=== PATIENT | female | born 2000 | race Caucasian/White ===

== ENCOUNTER 2024-02-12 07:01 | Day surgery (SDC) | payer BC ==
[2024-02-10 13:26] LABS: Hematocrit 39.3 % (34.9-44.5); Hemoglobin 13.3 g/dL (12.0-15.5); Mean Corpuscular HGB CONC 33.8 g/dL (32.0-36.0); Mean Corpuscular Hemoglobin 28.5 pg (27.0-33.0); Mean Corpuscular Volume 84.3 fL (81.6-98.3); Mean Platelet Volume 10.4 fL (7.4-10.4); Platelet Count 285 10x3/uL (150-450); RBC Distribution Width 13.1 % (11.5-14.5); Red Blood Cell (RBC) Count 4.66 10x6/uL (3.90-5.03)
[2024-02-10 13:54] LABS: BHCG - Serum Negative (NEGATIVE); Pregs Control Background? CLEAR/WHITE (CLR/WHITE); Pregs Control Bar Appear? YES (CONTROL BAR)
[2024-02-12] MEDS ORDERED: CeleCOXIB 100 MG CAP ONE (07:20)
[2024-02-12] MEDS ORDERED: Gabapentin 300 MG CAP ONE (07:20)
[2024-02-12] MEDS ORDERED: CEFAZOLIN 2 GM VIAL ONE (07:21)
[2024-02-12] MEDS ORDERED: Famotidine/PF 20 mg/2ml Vial ONE ×2 (07:22→07:25)
[2024-02-12] MEDS ORDERED: Lidocaine 2% PF 5 ML VIAL ONE (08:27)
[2024-02-12] MEDS ORDERED: Ondansetron PF 4 MG/2 ML Vial ONE ×2 (08:28→13:48)
[2024-02-12] MEDS ORDERED: SUGAMMADEX SODIUM 200 MG/2 ML VIAL ONE (08:28)
[2024-02-12] MEDS ORDERED: Rocuronium Bromide 10 MG/ML (10ML VIAL) ONE (08:28)
[2024-02-12] MEDS ORDERED: diphenhydrAMINE 50 MG/ML VIAL ONE (08:28)
[2024-02-12] MEDS ORDERED: Dexamethasone 4 mg/ml Vial ONE (08:28)
[2024-02-12] MEDS ORDERED: fentaNYL 50 mcg/mL 1 mL Vial ONE ×2 (08:39→14:30)
[2024-02-12] MEDS ORDERED: Midazolam HCl 2 mg/2 ml Vial ONE (08:41)
[2024-02-12] MEDS ORDERED: PROPOFOL 20 ML ONE (09:32)
[2024-02-12] MEDS ORDERED: Bupivacaine HCl 0.5%/Epinephrine 1:200,000/PF 30 ml Vial ONE (10:30)
[2024-02-12] MEDS ORDERED: Methylene Blue 50 MG/10 ML AMPUL ONE (10:51)
[2024-02-12] MEDS ORDERED: PHENYLEPHRINE-NS 100 MCG/ML 10 ML SYRINGE ONE (11:25)
[2024-02-12] MEDS ORDERED: Fentanyl 250 MCG/5 ML VIAL ONE (13:18)
== END 2024-02-12 16:30 | disposition home or self-care (01) ==
LOC: CSHSDC 07:01
PROVIDERS: ATTEND Student in an Organized Health Care Education/Training Program
PROC: 0UB94ZX Excision of Uterus, Percutaneous Endoscopic Approach, Diagnostic (ICD-10-PCS; principal; 2024-02-12)
DX: N80.00 Endometriosis of the uterus, unspecified (principal); Q82.8 Other specified congenital malformations of skin; F90.9 Attention-deficit hyperactivity disorder, unspecified type; F41.9 Anxiety disorder, unspecified; F32.A Depression, unspecified; Z79.899 Other long term (current) drug therapy
CPT/HCPCS: 36415; 84703; 85027; 86850; 86900; 86901; 88305; J1100; J1200; J2250; J2405; J2704; J3010; J3490; S2900